=== PATIENT | female | born 1945 | race Caucasian/White ===

== ENCOUNTER 2016-10-21 14:36 | Inpatient (IN) | payer MEDICARE ==
[~2016-10-21] VITALS: Ht 180.3 cm; Wt 68.1 kg
[~2016-10-21 14:36] MED LIST: Areds 2 PO; BIMA2.5D5 BOTH_EYES; BRIM5DRO10 BOTH_EYES
--- NOTE | 2016-10-21 15:00 | NUR ---
Admission Pt direct admit, admitted to room 3022 via wheelchair, accompanied by friend. Ambulated to restroom and to bed, no complaints of shortness of breath or chest pain. Ambulation steady. Oriented to room and floor. VS taken. Awaiting diet order, otherwise no questions/concerns stated by patient. Call light within reach, bed in lowest position.
[2016-10-21] MEDS ORDERED: PRAV20TA2 PO (15:37)
[2016-10-21] MEDS ORDERED: TIMO5DRO5 BOTH_EYES (15:37)
[2016-10-21] MEDS ORDERED: BRIN10DR BOTH_EYES (15:37)
[2016-10-21] MEDS ORDERED: IRBE75TA10 PO (15:37)
[2016-10-21] MEDS ORDERED: BRIM5DRO2 BOTH_EYES (15:37)
[2016-10-21] MEDS ORDERED: Polyethylene Glycol (PEG) 17 Gm Powder PO PRN (15:40)
[2016-10-21] MEDS ORDERED: Alum-Mag Hydrox-Simeth 30 mL Suspension PO PRN (15:40)
[2016-10-21] MEDS ORDERED: Senna-Docusate 8.6-50 mg Tablet PO PRN (15:40)
[2016-10-21] MEDS ORDERED: Ondansetron 2 mg/mL 2 mL Inj IVPUSH PRN (15:40)
[2016-10-21 16:04] VITALS: BP 154/101; PULSE 67; O2SAT 98
[2016-10-21 16:19] VITALS: PULSE 135
[2016-10-21] MEDS: MeTOProlol XL 25 mg ER24 Tablet PO SCH (16:27)
[2016-10-21] MEDS: Sodium Chloride LOK Flush 10 mL Syringe IVFLUSH SCH ×2 (16:28→22:46)
[2016-10-21 16:49] LABS: BASOPHILS % (AUTO) 0.3 % (0-3); MONOCYTES % (AUTO) 8.7 % (4-12); Mean Corpuscular Volume 92.9 fL (81-100); NEUTROPHILS % (AUTO) 73.9 % (40-74); Platelet Count 223 bil/L (150-400)
[2016-10-21 17:06] LABS: INR 0.93 ratio
[2016-10-21 17:20] VITALS: BP 167/80; PULSE 110
[2016-10-21 17:28] LABS: Magnesium 2.2 mg/dL (1.6-2.6)
--- NOTE | 2016-10-21 17:43 | DRSVH ---
[facility] [address] [facility] [place] [address] Echocardiogram Report Name: RANDA MEDEL Study Date: 10/21/2016 Height: 71 in Hospital Exam Location: [facility] Weight: 15 0 lb Gender: Female BSA: 1.9 m2 : 1945 Age: 70 yrs Reason For Study: Atrial fibrillation Performed By: Tammy Cruz Referring Physician: DEANGELO DICKENS Interpretation Summary 1) Normal left ventricular thickness, size, wall motion, and systolic function (EF 55-60%). 2) Normal right ventricular size and function. 3) Moderately dilated left atrium. 4) No significant valvular abnormalities. 5) Atrial fibrillation with poorly controlled ventricular rates (119-125bpm). 6) No prior Echo available for comparison. Procedure: A two-dimensional transthoracic echocardiogram with color flow and Doppler was performed. The study quality was technically good. There is no prior echocardiogram noted for this patient. The patient was in atrial fibrillation with heart rates between 119-125 bpm during the exam. Left Ventricle: The left ventricle is normal in size, wall thickness, and systolic function without any focal wall motion abnormalities. The ejection fraction is estimated to be 55-60%. Diastolic function could not be accurately assessed due to atrial fibrillation. Right Ventricle: The right ventricle is normal in size and function. Atria: The left atrium is moderately dilated. Right atrial size is normal. The interatrial septum is intact with no evidence for an atrial septal defect. Mitral Valve: The mitral valve leaflets appear mildly thickened, but open well. There is mild mitral regurgitation. Aortic Valve: The aortic valve is trileaflet. The aortic valve opens well. There is mild aortic valve sclerosis. There is no aortic valve stenosis. There is no aortic regurgitation. Tricuspid Valve: The tricuspid valve leaflets are thin and pliable. There is trace tricuspid regurgitation. The right ventricular systolic pressure is estimated at 27 mmHg assuming a right atrial pressure of 3 mm Hg. Pulmonic Valve: The pulmonic valve is not well seen, but is grossly normal. There is mild pulmonic regurgitation. Great Vessels: The aortic root is normal size. The dimensions of the ascending aorta are normal. The IVC is of normal diameter and collapses greater than 50% with a sniff. This suggests a low right atrial pressure of 3 mm Hg. Pericardium/ Pleura There is no pericardial effusion. There is no pleural effusion. MMode/2D Measurements & Calculations LVIDd: 5.5 cm LA dimension: 3.5 cm RA long axis Ao root diam LVIDs: 3.6 cm FS: 33.7 % LA A2 area: 21.7 cm RA area Aortic Jxn: 2.6 cm IVSd: 0.85 cm LA A4 area: 19.8 cm asc Aorta Diam LVPWd: 0.86 cm LA length (vol) : 13.4 cm RA vol Ao Arch Diam (Prox LA vol: 70.7 ml : 35.2 ml Trans): 2.8 cm LA vol index RA : 18.9 mm/ RVDd major IVC diam: 2.0 cm : 4.5 cm LV ye. diameter/BSA LV sys. diameter/BSA RVD1 (basal) RVD2 (mid): 3.2 cm (cm/m^2): 2.9 (cm/m^2): 1.9 Doppler Measurements & Calculations Ao V2 max MV P1/2t TR max veto MV V2 mean : 122.2 cm/sec : 54.6 msec : 244.6 cm/sec : 60.4 cm/sec Ao max P.0 mmHg TR max PG MV mean PG Ao mean P.2 mmHg : 23.9 mmHg PA V2 max MV V2 VTI : 96.4 cm/sec : 16.1 cm PA mean PG PA Accel Time MV P1/2t max veto Ao V2 mean PA V2 mean : 82.3 cm/sec : 64.9 cm/sec MVA(P1/2t): 4.0 cm2 Ao V2 VTI : 21.4 cm Reading Physician:05:[id number] PM
[2016-10-21 20:00] VITALS: PULSE 109
[2016-10-21] MEDS: Brimonidine 0.1% 5 mL Ophthalmic Solution BOTH_EYES SCH (20:33)
[2016-10-21] MEDS: BRINZOLAMIDE 1% BOTH_EYES SCH (20:33)
--- NOTE | 2016-10-21 20:51 | NUR ---
2000: a/o, denies pain/discomfort. HR 130's at rest, reports "feeling occassional thumping in my chest, but no pain whatsover." tolerating metoprolol, which is new for her. plan for NPO after midnight for echo, DEBBIE w/ cardioversion in AM. Addendum: 10/22/16 at 0628 by FELIX MURDOCK RN continues w/ Afib mid 80's. ua sent per protocol. culture pending. NPO.
[2016-10-22] VITALS (24 sets, daily range): BP systolic 83–157; BP diastolic 57–114; PULSE 74–112; RESP 13–26; O2SAT 97–100
--- NOTE | 2016-10-22 01:05 | HP ---
[address] [address] HISTORY AND PHYSICAL PATIENT: RANDA MEDEL : 1945 MR#: [id number] ADMIT: 10/21/2016 JOB ID: [id number] DATE OF SERVICE: 10/21/2016 CHIEF COMPLAINT: Dyspnea on exertion and chest pain. HISTORY OF PRESENT ILLNESS: The patient is a 70-year-old woman with history of breast cancer, status post bilateral mastectomies and chemotherapy, mild hypertension and glaucoma. Two months ago, she noted intermittent chest discomfort that lasted up to an hour. Sometimes it occurs at rest and sometimes it occurs during physical activity. The patient also noted intermittent palpitations that started about a month ago. She had an interesting episode of what sounds like to me syncope. The patient was watching TV. She then fell asleep and then she somehow fell out of her chair and fell onto the floor which led to facial injuries. She does not believe she blacked out and thinks that her fall was simply related to falling asleep. She was also complaining of worsening dyspnea on exertion. She was referred by primary care provider, Dr. Mercado, to undergo pharmacologic stress test and myocardial perfusion imaging. I was then contacted by physician certified surgical assistant, Edward Aleman. He notified me that this patient came in for scheduled for elective outpatient stress test and was found to have atrial fibrillation with rapid ventricular response. I evaluated the patient. She was aware of some palpitations. She also articulated to me that she lives alone and she does not have much support right now. I offered her the opportunity to be admitted for further management, and she agreed. She thinks, in hindsight, she has been in and out of atrial fibrillation for the past two months. She was treated with rate control and anticoagulation, and . PAST MEDICAL HISTORY: 1. Hypertension. On irbesartan. 2. Glaucoma. On multiple eye drops. 3. Varicose veins. 4. Right-sided breast cancer, status post bilateral mastectomy and Adriamycin chemotherapy. FAMILY HISTORY: No family history of coronary artery disease. SOCIAL HISTORY: The patient is . Unfortunately, her recently was transferred to the [facility]. She maintains the house and lives with two dogs on [address]. She does not smoke. She is a retired anesthesiologist. She is accompanied today by her friend, Nori Miranda. ALLERGIES: No known drug allergies. HOME MEDICATIONS: 1. Irbesartan 75 mg, 1/2 tablet daily. 2. Alphagan, one drop to both eyes twice a day. 3. Azopt, one drop to both eyes twice a day. 4. Lumigan, one drop to both eyes every evening. 5. Timolol, one drop daily to both eyes. 6. Pravastatin 20 mg daily. REVIEW OF SYSTEMS: Anxiety, feelings of sadness over her 's health, palpitations, chest discomfort, dyspnea on exertion. Otherwise, 10 point review of systems is negative. PHYSICAL EXAMINATION: Vital signs: Temperature 36.6, blood pressure 154/101, up to 167/80, pulse ranged from 109 up to 135, satting 98% on room air. Thin, elderly woman. No apparent distress. Eyes: No scleral icterus. Head: Normocephalic, atraumatic. Heart: Normal S1, S2. Irregularly irregular. No murmurs. Lungs: Clear to auscultation anteriorly. Abdomen: Soft. Positive bowel sounds. No hepatosplenomegaly. Extremities: Warm and well perfused. No clubbing, cyanosis, edema. Skin: No rashes. No lesions. DIAGNOSTIC STUDIES: Echo: I have personally reviewed. It showed preserved LV systolic function. Moderate left atrial enlargement. No significant valvular abnormalities. Left atrial volume index was 35.2 mL/m2. EKG showed atrial fibrillation with rapid ventricular response, left ventricular hypertrophy and ST depression. I have personally reviewed the stress test. I thought it looked normal. There was no evidence of ischemia or prior infarct, but the pharmacologic stress test showed ST depression in inferolateral leads with a background of atrial fibrillation. ASSESSMENT AND PLAN: A 70-year-old woman with CHADS2-vasc score of 3, with points for hypertension, female gender, age over 65. She comes in with atrial fibrillation, rapid ventricular response, and stable vital signs. The plan is to admit her, rate control her with metoprolol tartrate 25 mg twice a day. Start her on Lovenox as an inpatient for stroke prevention, n.p.o. after midnight, do cardioversion in the morning, and hopefully home on October 22 if everything works out. She will need additional loading with antiarrhythmic medication. Because she has abnormal stress test, she is eligible for class one C antiarrhythmics. Thank you very much for the opportunity to evaluate her.
[2016-10-22 05:06] LABS: APPEARANCE,URINE HAZY (CLEAR,HAZY); COLOR,URINE YELLOW (YELLOW)
[2016-10-22 05:07] LABS: OCCULT BLOOD,URINE NEGATIVE (NEGATIVE); UROBILINOGEN,URINE NORMAL (NORMAL)
[2016-10-22] MEDS ORDERED: TIMOLOL 0.25% BOTH_EYES SCH (08:30)
[2016-10-22] MEDS: Brimonidine 0.1% 5 mL Ophthalmic Solution BOTH_EYES SCH (08:39)
[2016-10-22] MEDS: BRINZOLAMIDE 1% BOTH_EYES SCH (08:39)
[2016-10-22] MEDS: Sodium Chloride LOK Flush 10 mL Syringe IVFLUSH SCH (08:40)
[2016-10-22] MEDS: MeTOProlol XL 25 mg ER24 Tablet PO SCH (09:20)
--- NOTE | 2016-10-22 09:30 | NUR ---
To [facility] pt ordered for DEBBIE, and cardioversion in [facility] department pt alert and oriented. transported via wheelchair to [facility]. telemetry informed.
[2016-10-22] MEDS ORDERED: fentaNYL-PF 50 mCg/mL 2 mL Inj ONE (09:51)
[2016-10-22] MEDS ORDERED: Atropine 1 mg/10 mL (Code) Syringe ONE (09:51)
[2016-10-22] MEDS ORDERED: Flumazenil 0.1 mg/mL 5 mL Inj IV ONE (09:52)
[2016-10-22] MEDS ORDERED: Methohexital 10 mg/mL 50 mL Inj ONE (09:53)
--- NOTE | 2016-10-22 10:44 | NUR ---
Care Assumed/Attempted DEBBIE Care assumed about 0950. DrMars in and consented and numbing began about 1005. First meds at 1016 and attempted to pass the probe 3 times with total of 3.5mg Versed and Fentanyl 25mcg given, see Intra flow sheet. Rescheduling with anesthesia for about 1400. Pt. to remain NPO. Monitoring per protocol, See ANNIE VS. No acute distress.
--- NOTE | 2016-10-22 14:27 | PCM.DIMED ---
Discharge Instructions Date of Service Oct 22, 2016 Dates of Hospitalization Oct 21, 2016 at 14:58 Discharge Diagnosis Discharge Diagnosis paroxysmal afib Test Results normal stress test - no ischemia normal tsh reassuring echo - normal ef; moderate left atrial enlargement; no valvular abnormalities Diet Other (low sodium) Activity No restrictions Call your provider Shortness of breath, Other (palpitations or chest pain) Patient Instructions Follow-up plan f/u with Dr. Pichardo in cardiology in 2-3 weeks Carol Ann Pichardo MD Oct 22, 2016 14:27
[2016-10-22] MEDS ORDERED: APIX5TAB AD (14:32)
[2016-10-22] MEDS ORDERED: METO25TA99 PO (14:32)
[2016-10-22] MEDS ORDERED: FLC50T PO (14:32)
--- NOTE | 2016-10-22 14:38 | NUR ---
Converted/Transfer Pt. converted spontaneously from Afib to SR about 12:11. EKG done and Dr. Pichardo notified. Procedures cancelled. Transported to 302 via w/c at 1415 with all belongings in no distress. Bedside report given to Bertha Mccabe RN
--- NOTE | 2016-10-22 15:06 | NUR ---
Social Work Note - Initial Assessment/Discharge: D/A: See Initial Assessment. The Pt is a 70 y/o female that was admitted for AFIB with RVR. The Pt's PCP is DO Syed Mercado and her primary insurance is Medicare with an [employer] supplement - [facility]. EMR reviewed. FLAVIA met with the Pt and her friend Nori to explain role and discuss discharge planning. FLAVIA telephone number written on [employer]. The Pt lives alone independently in her home on [address]. The Pt reports having DPOA papework at home, paperwork requested. The Pt identifies her son Preston Mitchell as her identified support person. The Pt continues to drive, does not use any DME, and has no HH/SNF history. Cardiology involved, see note. The Pt denies any needs at this time, SW to follow if needs arise. P: The Pt to discharge home today with friend providing POV transportation. The Pt denies any needs at this time, SW to follow if needs arise. BRAD Alonso Hoist Operator Addendum: 10/22/16 at 1510 by JENNI HERNANDEZ SS Amended: Links added.
--- NOTE | 2016-10-22 15:35 | NUR ---
Discharge pt ordered for discharge home. pt alert and oriented, independent. discharge instructions and medications reviewed with patient. pt ambulated with very steady gait and all belongings accompanied by friend to front lobby. departed unit at about 1530.
--- NOTE | 2016-10-23 01:08 | DIS ---
[address] [address] DISCHARGE SUMMARY PATIENT: RANDA MEDEL : 1945 MR#: [id number] ADMIT: 10/21/2016 JOB ID: [id number] DIS: 10/22/2016 DISCHARGE DIAGNOSES: 1. Atrial fibrillation with rapid ventricular response. 2. Dyspnea on exertion. 3. Chest pain. HOSPITAL COURSE: Briefly, the patient was admitted following pharmacologic stress test with myocardial perfusion imaging due to AFib with RVR and unstable vital signs. She was treated with Lovenox and she tolerated treatment well. She underwent attempt at DEBBIE to be followed by cardioversion. Unfortunately, could not pass the probe so DEBBIE was canceled. Cardioversion was canceled. Luckily, she spontaneously converted after receiving dose of metoprolol succinate 25 mg. Normal sinus rhythm was restored without conversion pause. Therefore, she is discharged home in stable condition on the following medications: 1. fLECAInide 50 mg tab - half a pill twice a day 2. Eliquis 5 mg twice a day. 3. Toprol-XL 25 mg daily. Thank you very much for the opportunity to evaluate her. CHARLY
== END 2016-10-22 15:33 | disposition home or self-care (01) | DRG 310 ==
LOC: MPC 14:58
PROVIDERS: ADMIT Internal Medicine; ATTEND Internal Medicine
DX: I48.91 Unspecified atrial fibrillation (principal); I10 Essential (primary) hypertension; R06.00 Dyspnea, unspecified